=== PATIENT | male | born 1970 | race African-American/Black ===

== ENCOUNTER → 2019-08-28 | Outpatient (CLI) | payer OTHER ==
--- NOTE | 2019-08-28 15:52 | RADIOLOGY REPORT (SQ) ---
EXAM DESCRIPTION: U/S RETROPERITON (RENAL/AORTA) COMPLETED DATE/TIME: 08/28/2019 3:10 pm REASON FOR STUDY: ABN KIDNEY FUNCTION (R94.4) R94.4 ABNORMAL RESULTS OF KIDNEY FUNCTION STUDIES COMPARISON: None. TECHNIQUE: Dynamic and static grayscale images acquired of the kidneys and bladder and recorded on P ACS. Additional selected color Doppler and spectral images recorded. RADIATION DOSE: 2. LIMITATIONS: None. FINDINGS: RIGHT KIDNEY: Mildly asymmetrically small measuring 9.7 cm. Normal echogenicity. No solid or suspicious masses. Scattered cysts, largest measuring 1.8 cm. No hydronephrosis. No calcificatio ns. LEFT KIDNEY: Normal size measuring 11.3 cm. Normal echogenicity. No solid or suspicious masses. 1.5 cm cyst. No hydronephrosis. No calcifications. BLADDER: Decompressed. No jets visualized. OTHER FINDINGS: No other significant finding. IMPRESSION: 1. No hydronephrosis. 2. Small bilateral renal cysts. TECHNICAL DOCUMENTATION: JOB ID: [id number] [employer]- All Rights Reserved Reading location - IP/workstation name: [email or web address]
== END ==
LOC: RAD 14:16
PROVIDERS: ATTEND Internal Medicine
DX: R94.4 Abnormal results of kidney function studies (principal)
CPT/HCPCS: 76770